=== PATIENT | male | born 1935 | race Caucasian/White ===

== ENCOUNTER → 2017-01-04 | Outpatient (CLI) | payer OTHER | LOC: HEART 5 10:00 | DX: R55 Syncope and collapse (principal) ==

== ENCOUNTER → 2017-01-15 | Outpatient (CLI) | payer OTHER | LOC: RT 12:04 | DX: R55 Syncope and collapse (principal); I95.1 Orthostatic hypotension ==

== ENCOUNTER 2021-05-31 11:03 | Emergency (ER) | payer MEDICARE, OTHER ==
[~2021-05-31 11:03] MED LIST: ALPHA LIPOIC A200 M1 PO; ASPIR 8181 MG PO; CELEXA20 MG PO; CENTRUM SILVER1 EAC1 PO; FERROUS SULFAT325 M2 PO; GLUCOPHAGE 500500 MG PO; NORCO 5-325 TA1 EACH PO; PHILLIPS' COLO1 EACH PO; TIROSINT50 MCG PO; VITAMIN B-121000 MCG PO; VITAMIN B-650 MG PO; VITAMIN C500 M4 PO; VITAMIN D3125 MCG PO
[2021-05-31 12:13] LABS: HEMOGLOBIN 13.7 gm/dl (14.0-17.5); RED BLOOD COUNT 4.49 M/UL (4.20-5.50); WHITE BLOOD COUNT 4.8 K/UL (4.5-11.0)
[2021-05-31 12:38] LABS: BUN/CREATININE RATIO 13 (0-10)
[2021-05-31] MEDS ORDERED: LAXATIVE SUPPO1 EACH PR (14:17)
[2021-05-31] MEDS ORDERED: ZOFRAN4 MG PO (14:17)
== END 2021-05-31 14:35 | disposition home or self-care (01) ==
LOC: ER1 11:03
PROVIDERS: Physician Assistant
DX: K59.00 Constipation, unspecified (principal); R11.0 Nausea; E11.9 Type 2 diabetes mellitus without complications; Z20.822 Contact with and (suspected) exposure to COVID-19
CPT/HCPCS: 71045; 80053; 81001; 82550; 82553; 83690; 83874; 84484; 85025; 87086; 93005; 96374; 99284; J2405; Q9965; U0002

== ENCOUNTER → 2021-06-20 | Outpatient (CLI) | payer MEDICARE, OTHER ==
[~2021-06-20] MED LIST changes: +LAXATIVE SUPPO1 EACH PR; +ZOFRAN4 MG PO
== END ==
LOC: NM 12:46
DX: K80.20 Calculus of gallbladder without cholecystitis without obstruction (principal); R10.9 Unspecified abdominal pain
CPT/HCPCS: 78226; A9537

== ENCOUNTER → 2021-07-19 | Day surgery (SDC) | payer MEDICARE, OTHER ==
[~2021-07-19] MED LIST changes: +ABILIFY 2 MG TAB2 MG PO; +ACIPHEX20 MG PO; +ARICEPT10 MG PO; +COLACE100 MG PO; +FENOFIBRATE145 MG PO; +HYDROCODON-ACE1 EAC4 PO; +LEVOTHYROXINE50 MCG PO; +MELATONIN10 M2 PO; -TIROSINT50 MCG PO; +ZINC50 M2 PO
== END | disposition home or self-care (01) ==
LOC: OR 05:27
DX: K80.10 Calculus of gallbladder with chronic cholecystitis without obstruction (principal); E11.42 Type 2 diabetes mellitus with diabetic polyneuropathy; E11.22 Type 2 diabetes mellitus with diabetic chronic kidney disease; I12.9 Hypertensive chronic kidney disease with stage 1 through stage 4 chronic kidney disease, or unspecified chronic kidney disease; N18.30 Chronic kidney disease, stage 3 unspecified; E03.9 Hypothyroidism, unspecified; E66.9 Obesity, unspecified; G47.33 Obstructive sleep apnea (adult) (pediatric); E11.36 Type 2 diabetes mellitus with diabetic cataract; H26.9 Unspecified cataract; Z20.822 Contact with and (suspected) exposure to COVID-19
CPT/HCPCS: 82962; J0290; J1100; J2001; J2405; J2704; J2710; J3010; J7030; J7120

== ENCOUNTER → 2021-08-09 | Outpatient (CLI) | payer MEDICARE, OTHER | LOC: KOH-I 13:44 | DX: M25.561 Pain in right knee (principal); M17.11 Unilateral primary osteoarthritis, right knee | CPT/HCPCS: 73562 ==

== ENCOUNTER → 2021-08-12 | Outpatient (CLI) | payer MEDICARE, OTHER | LOC: MRI 09:50 | DX: M25.561 Pain in right knee (principal); M25.461 Effusion, right knee; S83.411A Sprain of medial collateral ligament of right knee, initial encounter; X50.1XXA Overexertion from prolonged static or awkward postures, initial encounter; M22.41 Chondromalacia patellae, right knee; M76.51 Patellar tendinitis, right knee | CPT/HCPCS: 73721 ==

== ENCOUNTER → 2021-10-10 | Day surgery (SDC) | payer MEDICARE, OTHER ==
[~2021-10-10] VITALS: Ht 185.4 cm; Wt 98.0 kg
[~2021-10-10] MED LIST changes: +FOLIC ACID PO; +HYDROCODON-ACE1 EAC2 PO; +METFORMIN HCL500 MG PO; +diclofenac 1% gel TOP
== END | disposition home or self-care (01) ==
LOC: OR 05:45
PROVIDERS: Orthopaedic Surgery
PROC: 0SBC4ZZ Excision of Right Knee Joint, Percutaneous Endoscopic Approach (ICD-10-PCS; principal; 2021-10-10 07:30)
DX: M23.321 Other meniscus derangements, posterior horn of medial meniscus, right knee (principal); Z20.822 Contact with and (suspected) exposure to COVID-19
CPT/HCPCS: J0171; J0690; J1100; J2001; J2405; J2704; J3010; J7030; J7120

== ENCOUNTER → 2022-01-11 | Outpatient (CLI) | payer MEDICARE, OTHER | LOC: KOH-I 08:51 | DX: S89.90XA Unspecified injury of unspecified lower leg, initial encounter (principal); M17.12 Unilateral primary osteoarthritis, left knee | CPT/HCPCS: 73562 ==